=== PATIENT | female | born 1955 | race Caucasian/White ===

== ENCOUNTER 2022-01-26 20:45 | Emergency (ER) | payer MEDICARE, OTHER ==
[~2022-01-26 20:45] MED LIST: ASPIRIN EC81 MG PO; ATORVASTATIN CA20 MG PO; CARVEDILOL12.5 MG PO; CATAPRES 0.1MG0.1 MG PO; CEFUROXIME250 MG PO; COZAAR 50MG TAB50 MG PO; IPRAT-ALBUT 0.5-3 ML NEB; LASIX20 MG PO; SYMBICORT 16010.2 GM INH
[2022-01-26 21:47] LABS: HEMOGLOBIN 12.5 gm/dl (12.3-15.3); RED BLOOD COUNT 4.03 M/UL (4.00-5.10); WHITE BLOOD COUNT 6.2 K/UL (4.5-11.0)
[2022-01-26 22:11] LABS: BUN/CREATININE RATIO 27 (0-10)
[2022-01-27] MEDS ORDERED: ZOFRAN 4 MG TAB4 MG PO (00:26)
[2022-01-27] MEDS ORDERED: BENZONATATE200 MG PO (00:26)
== END 2022-01-27 00:40 | disposition home or self-care (01) ==
LOC: ER1 20:45
PROVIDERS: Physician Assistant Medical
DX: U07.1 COVID-19 (principal); I50.9 Heart failure, unspecified; J44.9 Chronic obstructive pulmonary disease, unspecified; F17.210 Nicotine dependence, cigarettes, uncomplicated
CPT/HCPCS: 36600; 71045; 80053; 82550; 82553; 82803; 83605; 83880; 84484; 85025; 93005; 99284; U0002

== ENCOUNTER → 2022-05-01 | Outpatient (CLI) | payer MEDICARE ==
[~2022-05-01] MED LIST changes: +BENZONATATE200 MG PO; +ZOFRAN 4 MG TAB4 MG PO
== END ==
LOC: HEART 5 10:12
DX: J44.9 Chronic obstructive pulmonary disease, unspecified (principal)
CPT/HCPCS: 94010; 94729